=== PATIENT | female | born 1960 | race Caucasian/White ===

== ENCOUNTER 2025-03-13 10:54 | Outpatient (AMB) | payer MEDICARE, SELFPAY ==
--- NOTE | 2025-03-13 10:56 | MHC.OFFWIV ---
Intake Vital Signs 03/13/25 10:58 Height 5 ft 2 in Weight 142 lb 6 oz BMI 26.0 BP 128/76 Blood Pressure Location Lt brachial Position Sitting Pulse 71 Pulse Source Pulse Oximeter Temp 97.9 F Temp Source Oral Pulse Oximetry (%) 98 Oxygen Delivery Method Room Air Intake Visit Reasons: [employer] Poison [place] on face/going into eye Intake Note: Patient presents with c/o burning rash on left side of face & scalp x4 days. Allergies No Known Allergies Allergy (Verified 03/13/25 11:00) Medication List - Last Reviewed 03/13/25 by Latha Lopez CMA bupropion HCl XL 300 mg PO DAILY metoprolol tartrate 50 mg PO DAILY paroxetine HCl 40 mg PO DAILY Do you need a note to return to daycare/school/sports/work: No HPI [employer] Poison Pa[place] on face/going into eye HPI Details History of Present Illness The patient is a 64-year-old female presenting with a rash with blisters. Shingles: - The rash was first noticed on Wednesday. - Initially thought it might be an allergic reaction. - Rash consists of blisters located near the left eyelid and scalp. - No report of eye redness or watering. - Experiences pain when touching the affected area. - No symptoms present on the opposite side, indicating unilateral presentation. - Plans to see an student records specialist after completing treatment. Problem List - Herpes Zoster (Shingles) Plan - Initiate antiviral therapy to manage the Herpes Zoster. - Prescribe prednisone to prevent potential eye involvement and reduce inflammation. oral and eye drop to left eye - Monitor for any signs of ocular involvement, such as red, watery eyes or the presence of vesicles, and advise immediate medical attention if these symptoms occur. - Discussed the importance of picking up the prescribed medication as soon as possible to manage and control the symptoms effectively. 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 - Initially thought it might be an allergic reaction. - Rash consists of blisters located near the left eyelid and scalp. - No report of eye redness or watering. - Experiences pain when touching the affected area. - No symptoms present on the opposite side, indicating unilateral presentation. - Plans to see an student records specialist after completing treatment. Problem List - Herpes Zoster (Shingles) Plan - Initiate antiviral therapy to manage the Herpes Zoster. - Prescribe prednisone to prevent potential eye involvement and reduce inflammation. oral and eye drop to left eye - Monitor for any signs of ocular involvement, such as red, watery eyes or the presence of vesicles, and advise immediate medical attention if these symptoms occur. - Discussed the importance of picking up the prescribed medication as soon as possible to manage and control the symptoms effectively. Medications: New prednisolone acetate 1% 1 drp ophthalmic (eye) TID 5 mL 0RF 5 days famciclovir 500 mg PO Q8H 21 tabs 0RF 7 days prednisone 20 mg PO DAILY 5 tabs 0RF 5 days Coding Level of Care Code Est Pt Level 4 (11574) Diagnoses Herpes zoster virus infection of face and ear nerves B02.29 Herpes zoster of eyelid B02.39
[2025-03-13 10:58] VITALS: BP 128/76; PULSE 71; TEMP 36.6; O2SAT 98; BMI 26.0
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
== END 2025-03-13 12:52 | disposition home or self-care (01) ==
PROVIDERS: Visit Provider Internal Medicine
DX: B02.29 Other postherpetic nervous system involvement (principal); B02.39 Other herpes zoster eye disease

== ENCOUNTER → 2025-03-13 10:54 | Outpatient (BNVA) | payer MEDICARE, SELFPAY | PROVIDERS: Visit Provider Internal Medicine | DX: R21 Rash and other nonspecific skin eruption (principal); B02.29 Other postherpetic nervous system involvement; B02.39 Other herpes zoster eye disease; S00.02XA Blister (nonthermal) of scalp, initial encounter; X58.XXXA Exposure to other specified factors, initial encounter; Y93.9 Activity, unspecified; Y92.9 Unspecified place or not applicable; Y99.9 Unspecified external cause status | CPT/HCPCS: 99212 ==